=== PATIENT | female | born 1965 | race Caucasian/White ===

== ENCOUNTER 2017-11-02 20:08 | Emergency (ER) | payer OTHER ==
[2017-11-02] MEDS: CYCLOBENZAPRINE 10 MG TAB PO (21:23)
[2017-11-02] MEDS: IBUPROFEN 600 MG TAB PO (21:23)
== END 2017-11-02 23:11 | disposition home or self-care (01) ==
LOC: FTE 23:11
DX: M25.512 Pain in left shoulder (principal); R07.9 Chest pain, unspecified
CPT/HCPCS: 73000; 99283-25

== ENCOUNTER 2018-04-25 16:31 | Emergency (ER) | payer OTHER ==
[2018-04-25] MEDS: KETOROLAC 30 MG INJ IM (17:47)
== END 2018-04-25 19:03 | disposition home or self-care (01) ==
LOC: FTE 16:31
DX: R51 Headache (principal)
CPT/HCPCS: 70450; 81025; 96372; 99285-25

== ENCOUNTER 2019-02-18 12:12 | Emergency (ER) | payer OTHER ==
[2019-02-18] MEDS: IBUPROFEN 600 MG TAB PO (14:22)
== END 2019-02-18 15:36 | disposition home or self-care (01) ==
LOC: FTE 12:12
DX: S93.402A Sprain of unspecified ligament of left ankle, initial encounter (principal); W01.0XXA Fall on same level from slipping, tripping and stumbling without subsequent striking against object, initial encounter; Y92.9 Unspecified place or not applicable
CPT/HCPCS: 29515; 73610; 81025; 99283-25